=== PATIENT | female | born 1985 ===

== ENCOUNTER 2016-11-15 14:15 | Emergency (ER) | payer MEDICARE, MEDICAID ==
[2016-11-15 14:23] VITALS: BP 126/74
--- NOTE | 2016-11-15 19:20 | RAD ---
INDICATION: "Choking event" COMPARISON: None. TECHNIQUE: Single AP portable view of the chest was obtained. FINDINGS: Image quality is compromised due to the relative inferiority of a portable chest x-ray and due to apparent reduced inspiratory effort. The heart and mediastinum exhibit normal size and contour. The lung volumes appear reduced likely due to incomplete inspiration, but are otherwise grossly clear. There is no evidence of a large pleural effusion. Visualized bones are normal for the patient's age. IMPRESSION: No radiographic evidence for acute cardiopulmonary abnormality on this portable chest x-ray.
--- NOTE | 2016-11-16 13:27 | ED ---
Lorena Aleman Nilda, scribed for Ganga Acosta MD on 11/15/16 at 1938 . Respiratory - HPI Summary HPI Summary: This patient is a 30 year old F presenting from [facility] to [facility] accompanied by mother in which patient had gasping episodes today at noon (7.5 hours ago). Per staff, patient looked as if she was trying to cough and could not breathe. Symptoms alleviated by spontaneous resolution. Per mother, patient has occasional non-productive cough but denies loss of appetite, fever, and rhinorrhea. No PMHx of asthma or lung problems. PMHx of cerebral palsy. - History of Current Complaint Chief Complaint: EDGeneral Stated Complaint: COLD, NOT EATING, DIFF BREATHING Time Seen by Provider: 11/15/16 18:48 Hx Obtained From: Family/Briquette Maker - mother and [facility] staff Onset/Duration: Sudden Onset Current Severity: None Pain Intensity: 0 Character: Cough (Nonproductive) Sputum Amount: None Alleviating Factor(s): Nothing, Spontaneous Resolution - Allergy/Home Medications Allergies/Adverse Reactions: Allergies Allergy/AdvReac Type Severity Reaction Status Date / Time No Known Allergies Allergy Verified 11/15/16 14:21 PMH/Surg Hx/FS Hx/Imm Hx Respiratory History: Denies: Hx Asthma Neurological History: Reports: Other Neuro Impairments/Disorders - cerebral palsy Infectious Disease History: No Infectious Disease History: Denies: Traveled Outside the [place] in Last 30 Days - Family History Known Family History: Negative: Hypertension, Diabetes - Social History Alcohol Use: None Substance Use Type: Reports: None Smoking Status (MU): Never Smoked Tobacco Review of Systems Negative: Fever, Chills, Skin Diaphoresis Negative: Erythema Negative: Sore Throat, Nasal Discharge Negative: Chest Pain Positive: Cough - non-productive (resolved), Other - gasping episodes (resolved) . Negative: Shortness Of Breath Positive: Other - negative loss of appetite. Negative: Abdominal Pain, Vomiting , Nausea Negative: dysuria, hematuria Negative: Myalgia, Edema Negative: Rash Neurological: Other - negative dizziness All Other Systems Reviewed And Are Negative: Yes Physical Exam - Summary Physical Exam Summary: Constitutional: Well-developed, Well-nourished, Alert. (-) Distressed. Non- toxic appearing. Skin: Warm, Dry HENT: Normocephalic; Atraumatic Eyes: Conjunctiva normal Neck: Musculoskeletal ROM normal neck. (-) JVD, (-) Stridor, (-) Tracheal deviation Cardio: Rhythm regular, rate normal, Heart sounds normal; Intact distal pulses; The pedal pulses are 2+ and symmetric. Radial pulses are 2+ and symmetric. (-) Murmur Pulmonary/Chest wall: Effort normal. (-) Respiratory distress, (-) Wheezes, (-) Rales; No signs of respiratory compromise; Patient is eating without gagging or grunting in the ED. Abd: Soft, (-) Tenderness, (-) Distension, (-) Guarding, (-) Rebound Musculoskeletal: (-) Edema, Rhythmic rocking at hips, muscle atrophy in lower extremities bilaterally and symmetrically Lymph: (-) Cervical adenopathy Neuro: Alert, Follows simple commands Psych: Mood and affect Normal Triage Information Reviewed: Yes Vital Signs On Initial Exam: Initial Vitals Temp Pulse Resp BP Pulse Ox 97.9 F 69 16 126/74 94 11/15/16 14:16 11/15/16 14:16 11/15/16 14:16 11/15/16 14:16 11/15/16 14:16 Vital Signs Reviewed: Yes - [place] Coma Scale Coma Scale Total: 15 Diagnostics - Vital Signs Vital Signs Temp Pulse Resp BP Pulse Ox 11/15/16 14:16 97.9 F 69 16 126/74 94 - Laboratory Lab Statement: Any lab studies that have been ordered have been reviewed, and results considered in the medical decision making process. - Radiology CXR Radiology Interpretation Completed By: Radiologist - No radiographic evidence for acute cardiopulmonary abnormality on this portable chest x-ray. ED physician has reviewed this radiology report and agrees. Disposition - Course Course Of Treatment: This patient is a 30 year old F presenting from [facility] to [facility] accompanied by mother in which patient had gasping episodes today at noon (7.5 hours ago). Per staff, patient looked as if she was trying to cough and could not breathe. Symptoms alleviated by spontaneous resolution. Per mother, patient has occasional non-productive cough but denies loss of appetite, fever, and rhinorrhea. No PMHx of asthma or lung problems. PMHx of cerebral palsy. CXR reveals no radiographic evidence for acute cardiopulmonary abnormality on this portable chest x-ray. ED physician has reviewed this radiology report and agrees. Patient will be discharged with a diagnosis of cough and follow up with PCP in 2-3 days. The patients family understands and is agreeable with this plan. - Diagnoses Provider Diagnoses: Cough Discharge - Discharge Plan Condition: Stable Disposition: HOME Referrals: Petros Antony MD [Primary Care Provider] - 3 Days Additional Instructions: RETURN TO THE EMERGENCY DEPARTMENT FOR CHANGING OR WORSENING SYMPTOMS. The documentation as recorded by the Lorena foss Nilda accurately reflects the service I personally performed and the decisions made by , Ganga Acosta MD.
== END 2016-11-15 20:40 | disposition home or self-care (01) ==
LOC: ED 14:15
DX: R05 Cough (principal)
CPT/HCPCS: 71010; 99282

== ENCOUNTER 2017-12-14 13:26 | Emergency (ER) | payer MEDICARE, MEDICAID ==
[2017-12-14 13:35] VITALS: BP 116/62
[2017-12-14] MEDS ORDERED: Tetan/Diph/Pertus SYR(Tdap)* 0.5 ML SYR(BOOSTRIX) use SYR IM ONE (13:45)
--- NOTE | 2017-12-14 13:51 | UC ---
Laceration HPI - HPI Summary HPI Summary: 32 yo F w cerebral palsy w laceration to R forearm and L 3rd digit caused by a metal sign at [facility]. Last tetanus unknown. Family hx noncontributory. - History Of Current Complaint Chief Complaint: UCLaceration Stated Complaint: FINGER LACERATION Time Seen by Provider: 12/14/17 13:41 Hx Obtained From: Family/Program Manager Rn, Other: - developmental delay Pain Intensity: 0 - Allergies/Home Medications Allergies/Adverse Reactions: Allergies Allergy/AdvReac Type Severity Reaction Status Date / Time No Known Allergies Allergy Verified 12/14/17 13:36 Home Medications: Home Medications Fluvoxamine Maleate [Fluvoxamine Maleate ER] 100 mg PO DAILY 12/14/17 [History Confirmed 12/14/17] Quetiapine Fumarate [Quetiapine 100 mg] 12/14/17 [History] Quetiapine Fumarate [Quetiapine 100 mg] 100 mg PO DAILY 12/14/17 [History Confirmed 12/14/17] Ziprasidone CAP* [Geodon CAP*] 80 mg PO DAILY 12/14/17 [History Confirmed ] PMH/Surg Hx/FS Hx/Imm Hx Previously Healthy: No - CP - Surgical History Surgical History: Unable to Obtain/Confirm - Family History Known Family History: Negative: Hypertension, Diabetes - Social History Alcohol Use: None Substance Use Type: None Smoking Status (MU): Never Smoked Tobacco Review of Systems Skin: Other - skin laceration All Other Systems Reviewed And Are Negative: Yes Physical Exam Triage Information Reviewed: Yes Appearance: Well-Appearing, No Pain Distress, Well-Nourished Vital Signs: Initial Vital Signs Temp 98 F 12/14/17 13:31 Pulse 87 12/14/17 13:31 Resp 16 12/14/17 13:31 BP 116/62 12/14/17 13:31 Pulse Ox 100 12/14/17 13:31 Vital Signs Reviewed: Yes Eyes: Positive: Conjunctiva Clear Respiratory: Positive: No respiratory distress, No accessory muscle use Neurological: Positive: Alert Psychological: Positive: Normal Response To Family Skin: Positive: Other - 3 cm superficial laceration to 3 forearm, narrow skin tear to pulp of 3rd digit distally (1cm), no active bleeding from either wound Laceration Repair - Laceration Repair 1 Description: Linear Laceration Size After Repair: Length (cm) - 3 cm Modified For Repair: No Cleansing Completed Via Routine Prep: Yes Irrigation With Pressure Irrigation Device: No Closure Material: SteriStrips - forearm lac Laceration Course/Dx - Course/Dx Course Of Treatment: forearm lac cleaned and approximated w steri-strips. bandaid placed over finger lac (similar appearance to paper cut). Tdap given - Differential Dx - Laceration/Wound Differental Diagnoses: Laceration Provider Diagnoses: laceration Discharge - Sign-Out/Discharge Documenting (check all that apply): Patient Departure All imaging exams completed and their final reports reviewed: No Studies - Discharge Plan Condition: Stable Disposition: HOME Patient Education Materials: Laceration (DC) Referrals: Petros Antony MD [Primary Care Provider] - Additional Instructions: keep area of SteriStrips dry for 24 hours. Clean with regular soap and water only - Billing Disposition and Condition Condition: STABLE Disposition: Home
== END 2017-12-14 14:10 | disposition home or self-care (01) ==
LOC: UCEAST 13:26
DX: S51.811A Laceration without foreign body of right forearm, initial encounter (principal); S61.213A Laceration without foreign body of left middle finger without damage to nail, initial encounter; W26.8XXA Contact with other sharp object(s), not elsewhere classified, initial encounter; Y92.512 Supermarket, store or market as the place of occurrence of the external cause; Z23 Encounter for immunization; G80.9 Cerebral palsy, unspecified
CPT/HCPCS: 90471; 90715; 99212; G0463